=== PATIENT | male | born 1950 | race Caucasian/White ===

== ENCOUNTER 2018-12-18 20:09 | Emergency (ER) | payer OTHER, MEDICAID ==
[~2018-12-18] VITALS: Ht 157.5 cm; Wt 63.5 kg
[2018-12-18 20:14] VITALS: BP 163/77
--- NOTE | 2018-12-18 20:17 | NUR ---
PT AMBULATORY WITH STEADY GAIT TO ED MARGIE
--- NOTE | 2018-12-18 20:30 | NUR ---
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 8/10 PAIN, ACHING. PAIN RADIATES TO BILATERAL FLANKS. ABDOMEN SOFT AND TENDER TO PALPALTION. BOWEL SOUNDS PRESENT X4 QUADRANTS. +FLANK TENDERNESS. PT HAS URGENCY BUT UNABLE TO VOID. BED IN LOWEST POSTION. PT GRANDSON AT BEDSIDE. WILL CONTINUE TO MONITOR.
--- NOTE | 2018-12-18 20:30 | NUR ---
PT AMBULATED TO ER BED 01
--- NOTE | 2018-12-18 21:10 | NUR ---
ATTEMPTED STRAIGHT CATH AND UNABLE TO ADVANCE CATH THROUGH [facility], RESISTANCE MET. BLOOD NOTICED AT [facility] OPENING. DR. GOFF MADE AWARE.
[2018-12-18] MEDS ORDERED: KETOROLAC 30 MG/ML VIAL IVP ONE (21:15)
[2018-12-18] MEDS ORDERED: NACL 0.9% 1,000 ML IV ONE (21:15)
--- NOTE | 2018-12-18 22:17 | NUR ---
PT ASLEEP. VISIBLE CHEST RISE AND FALL NOTED. VSS. WILL CONTINUE TO MONITOR.
--- NOTE | 2018-12-18 22:50 | NUR ---
PT ABLE TO PROVIDE URINE SAMPLE.
--- NOTE | 2018-12-18 23:45 | NUR ---
Patient discharged with v/s stable. Written and verbal after care instructions given and explained. Patient alert, oriented and verbalized understanding of instructions. Ambulatory with steady gait. All questions addressed prior to discharge. ID band removed. Patient advised to follow up with PMD. Rx of CIPRO, MOTRIN given. Patient educated on indication of medication including possible reaction and side effects. Opportunity to ask questions provided and answered.
--- NOTE | 2018-12-18 23:45 | NUR ---
IV removed, catheter intact and site benign. Applied folded 4x4 gauze and tape to stop bleeding.
[2018-12-18 23:46] VITALS: BP 135/70
== END 2018-12-18 23:45 | disposition home or self-care (01) ==
LOC: MED 20:09
DX: N39.0 Urinary tract infection, site not specified (principal); I10 Essential (primary) hypertension; E78.5 Hyperlipidemia, unspecified; N40.0 Benign prostatic hyperplasia without lower urinary tract symptoms; Z90.79 Acquired absence of other genital organ(s)
CPT/HCPCS: 81002; 96374; 99283; J1885; J7030

== ENCOUNTER 2021-12-23 18:06 | Emergency (ER) | payer OTHER, MEDICAID ==
[~2021-12-23] VITALS: Ht 167.6 cm; Wt 65.8 kg
[2021-12-23 18:25] VITALS: BP 169/73
--- NOTE | 2021-12-23 18:58 | NUR ---
Dr. Guzman examining patient.
--- NOTE | 2021-12-23 19:09 | NUR ---
71 y/o male bib family, pt presents to ed with c/o constipation for 3 days. pt denies n/v/d, fever, chills, cp, sob, sore throat, or anyone sick at home with s/s. pt a&ox4, yak[place] speaking, ambulates with steady gait. pmh: prostate ca, htn nka
[2021-12-23] MEDS ORDERED: MIRABULK PO (19:28)
[2021-12-23 19:35] VITALS: BP 147/81
--- NOTE | 2021-12-23 19:35 | NUR ---
Patient discharged with v/s stable. Written and verbal after care instructions given CONSTIPATION and explained. Patient alert, oriented and verbalized understanding of instructions. Ambulatory with steady gait. All questions addressed prior to discharge. ID band removed. Patient advised to follow up with PMD. Rx of MIRALX given.
== END 2021-12-23 19:35 | disposition home or self-care (01) ==
LOC: MED 18:06
DX: K59.00 Constipation, unspecified (principal); I10 Essential (primary) hypertension; Z85.46 Personal history of malignant neoplasm of prostate
CPT/HCPCS: 81002; 99282